=== PATIENT | female | born 1955 | race American Indian/Alaskan Native ===

== ENCOUNTER 2016-12-28 15:18 | Emergency (ER) | payer MEDICARE ==
--- NOTE | 2016-12-28 15:59 | Emergency Department Report ---
Entered by RADHA VENEGAS, acting as scribe for SAW DESOUZA NP. Chief Complaint: Fall Stated Complaint: MIGRAINE/CHEST/BACK PAIN Time Seen by Provider: 12/28/16 15:49 - HPI History of Present Illness: 61 y/o female presents after a fall that resulted in left sided chest pain occurring earlier this morning. Associated Sx include 10/10, pressure-like PARKS, dizziness, left sided abd pain and back pain. Pt denies LOC or trauma to the head during the fall. - ROS Review of Systems: +PARKS +dizziness +left side abd pain +back pain -LOC - Exam Vital Signs: Vital Signs 12/28/16 15:49 Temperature 98.4 F Pulse Rate 79 Respiratory 17 Rate Blood Pressure 150/73 O2 Sat by Pulse 100 Oximetry Physical Exam: PT looks well, non toxic L cw ttp no acute resp distress MSE screening note: Focused history and physical exam performed. Due to findings the following was ordered: labs, xr ED Disposition for MSE Condition: Stable This documentation as recorded by the scribe,RADHA VENEGAS,accurately reflects the service I personally performed and the decisions made by LYLY foy TRACY M, NP.
[2016-12-29 00:25] VITALS: BP 141/90
--- NOTE | 2016-12-29 03:45 | Emergency Department Report ---
ED Fall HPI - General Chief Complaint: Fall Stated Complaint: MIGRAINE/CHEST/BACK PAIN Time Seen by Provider: 12/28/16 15:49 Source: patient Mode of arrival: Ambulatory - History of Present Illness Initial Comments: And is a 61-year-old woman with a history of hypertension end-stage renal disease on dialysis presenting to the ER status post muscle aches. Patient reports she recently was on a cruise to the [facility] for the last 2 days and slept while she was on the cruciate and then had another fall today while she was at home. She reports she is not having frequent falls she just happened to fall twice in the last few days. Otherwise no other complaints no head trauma no loss of consciousness. - Related Data Home Medications Medication Instructions Recorded Confirmed Last Taken HYDROcodone/APAP 10-325 [[place] 1 each PO Q6HR PRN 10/23/16 10/23/16 Unknown 10-325 mg TAB] cloNIDine [Catapres] 0.2 mg PO BID 10/23/16 10/23/16 10/22/16 Previous Rx's Medication Instructions Recorded Last Taken Type Lisinopril [Zestril TAB] 10 mg PO DAILY #30 tablet 05/23/14 10/22/16 Rx amLODIPine [Norvasc] 10 mg PO QDAY #30 tablet 05/23/14 10/22/16 Rx hydrALAZINE [Apresoline TAB] 100 mg PO TID #90 tab 05/23/14 10/22/16 Rx HYDROcodone/APAP 5-325 [[place] 1 each PO Q6HR PRN #6 tablet 12/29/16 Unknown Rx 5/325] Allergies Allergy/AdvReac Type Severity Reaction Status Date / Time latex AdvReac Hives Verified 12/28/16 15:59 tramadol AdvReac Hives Verified 12/28/16 15:59 ED Review of Systems ROS: Stated complaint: MIGRAINE/CHEST/BACK PAIN Other details as noted in HPI Comment: All other systems reviewed and negative ED Past Medical Hx - Past Medical History Hx Hypertension: Yes Hx Congestive Heart Failure: Yes Hx Diabetes: Yes Hx Renal Disease: Yes (DIALYSIS E / SAT) Hx Asthma: No Hx COPD: No Hx HIV: No Additional medical history: dialysis ,,tue - Surgical History Additional Surgical History: fistula L arm. partial hysterectomy. POWER PORT RIGHT CHEST - Social History Smoking Status: Former Smoker Substance Use Type: None - Medications Home Medications: Home Medications Medication Instructions Recorded Confirmed Last Taken Type Lisinopril [Zestril TAB] 10 mg PO DAILY #30 tablet 05/23/14 10/23/16 10/22/16 Rx amLODIPine [Norvasc] 10 mg PO QDAY #30 tablet 05/23/14 10/23/16 10/22/16 Rx hydrALAZINE [Apresoline TAB] 100 mg PO TID #90 tab 05/23/14 10/23/16 10/22/16 Rx HYDROcodone/APAP 10-325 [[place] 1 each PO Q6HR PRN 10/23/16 10/23/16 Unknown History 10-325 mg TAB] cloNIDine [Catapres] 0.2 mg PO BID 10/23/16 10/23/16 10/22/16 History HYDROcodone/APAP 5-325 [[place] 1 each PO Q6HR PRN #6 tablet 12/29/16 Unknown Rx 5/325] ED Physical Exam - General Limitations: No Limitations General appearance: alert, in no apparent distress - Head Head exam: Present: atraumatic, normocephalic - Eye Eye exam: Present: normal appearance - ENT ENT exam: Present: mucous membranes moist - Neck Neck exam: Present: normal inspection - Respiratory Respiratory exam: Present: normal lung sounds bilaterally. Absent: respiratory distress - Cardiovascular Cardiovascular Exam: Present: regular rate, normal rhythm. Absent: systolic murmur, diastolic murmur, rubs, gallop - GI/Abdominal GI/Abdominal exam: Present: soft, normal bowel sounds - Extremities Exam Extremities exam: Present: normal inspection - Back Exam Back exam: Present: normal inspection, full ROM. Absent: tenderness, paraspinal tenderness, vertebral tenderness - Neurological Exam Neurological exam: Present: alert, oriented X3, CN II-XII intact, normal gait. Absent: motor sensory deficit - Psychiatric Psychiatric exam: Present: normal affect, normal mood - Skin Skin exam: Present: warm, dry, intact, normal color. Absent: rash, erythema, abrasion, ecchymosis ED Course Vital Signs 12/28/16 12/29/16 15:49 00:20 Temperature 98.4 F 98.0 F Pulse Rate 79 80 Respiratory 17 14 Rate Blood Pressure 150/73 141/90 O2 Sat by Pulse 100 100 Oximetry Critical care attestation.: If time is entered above; I have spent that time in minutes in the direct care of this critically ill patient, excluding procedure time. ED Disposition Clinical Impression: Fall, Arthralgia Disposition: DISCHARGED TO HOME OR SELFCARE Is pt being admited?: No Condition: Stable Instructions: Fall Prevention (ED), Musculoskeletal Pain (ED) Prescriptions: HYDROcodone/APAP 5-325 [[place] 5/325] 1 each PO Q6HR PRN #6 tablet PRN Reason: Pain Referrals: PRIMARY CARE, [Primary Care Provider] - 3-5 Days
[2016-12-29] MEDS ORDERED: NORCO 5/325 ONE (04:02)
[2016-12-29] MEDS: NORCO 5/325 PO ONE (04:13)
--- NOTE | 2016-12-29 08:43 | XRay Report ---
Left rib series with PA chest, 4 views. History: Left rib pain after fall. Findings: The heart is enlarged with normal pulmonary vascularity. The lungs are clear. No rib fractures are identified. There is no pleural fluid. A vascular stent is again noted above the level of the aorta. A right central line is unchanged in position. Impression: No acute findings.
== END 2016-12-29 04:14 | disposition home or self-care (01) ==
LOC: ED 15:18
DX: M79.1 Myalgia (principal); E11.9 Type 2 diabetes mellitus without complications; I12.0 Hypertensive chronic kidney disease with stage 5 chronic kidney disease or end stage renal disease; N18.6 End stage renal disease; W19.XXXA Unspecified fall, initial encounter; Y93.9 Activity, unspecified; Y92.9 Unspecified place or not applicable; Y99.9 Unspecified external cause status
CPT/HCPCS: 99283

== ENCOUNTER 2017-06-16 14:59 | Emergency (ER) | payer MEDICARE ==
[2017-06-16 15:42] VITALS: BP 134/71
--- NOTE | 2017-06-16 16:52 | Cat Scan Report ---
CT pelvis without contrast: Back pain. Transverse images were obtained dilute just to the ischium with coronal and sagittal 2-D reformatted images. Comparison is made to prior study of October 2016. There is bibasilar focal areas of atelectasis in the visualized lung bases. Not present on prior study. Cardiovascular calcification present. Cholecystectomy clips present. Lobulated liver and prominent size spleen. Moderate volume of food stuffs in the stomach. Bilaterally hypertrophic kidneys. Normal abdominal aortic contour and size. No obvious adenopathy although evaluation limited due to the lack of IV contrast. No renal calculus and no obstructive uropathy. Moderate volume of fecal matter predominantly in the proximal colon. Unopacified bowel otherwise unremarkable. Appendix questionably identified with no inflammatory change. Reproductive organs removed. The bones are diffusely demineralized. There is diffuse spondylosis of the lower thoracic bodies. There is a scalloped compression of the inferior margin of T11 with anterior compression of the superior body of T12. The compression changes are new compared to prior study. Impression: 1. Interval compression of lower thoracic spine. 2. Hepatic cirrhosis and suspicion of portal hypertension. 3. Suspect renal insufficiency with hypertrophic kidneys. 4. Question gastric atony. 5. Bibasilar atelectasis.
[2017-06-17] MEDS ORDERED: MORPHINE ONE ×2 (10:31→11:14)
== END 2017-06-16 19:58 | disposition left against medical advice (07) ==
LOC: ED 14:59
DX: M54.5 Low back pain (principal); Z53.21 Procedure and treatment not carried out due to patient leaving prior to being seen by health care provider
CPT/HCPCS: 74176; J2270

== ENCOUNTER 2017-06-16 21:35 | Inpatient (IN) | payer MEDICARE ==
[2017-06-16 23:57] LABS: Calcium 9.3 mg/dL (8.4-10.2); Chloride 92.8 mmol/L (98-107); Potassium 4.7 mmol/L (3.6-5.0)
[2017-06-17 00:24] LABS: White Blood Count 6.2 K/mm3 (4.5-11.0)
[2017-06-17 00:25] LABS: Hemoglobin 10.3 gm/dl (10.1-14.3); Mean Corpuscular HGB Conc 30 % (30-34); Mean Corpuscular Hemoglobin 24 pg (28-32); Mean Corpuscular Volume 79 fl (79-97); Red Blood Count 4.31 M/mm3 (3.65-5.03)
[2017-06-17 00:26] LABS: Platelet Count 112 K/mm3 (140-440); Red Cell Distribution Width 20.5 % (13.2-15.2)
[2017-06-17 01:19] LABS: Erythrocyte Sedimentation Rate 57 mm/Hr (0-20)
[2017-06-17 01:51] LABS: Anisocytosis 1+; Basophils % (Manual) 0 % (0.0-1.8); Blastocytes % (Manual) 0 %; Hypochromasia 1+; Macrocytosis 1+
[2017-06-17 01:52] LABS: Giant Platelets Rare; Tear Drop Cells Few
[2017-06-17 01:53] LABS: Diff Status Complete; Platelet Estimate Consistent w Auto
[2017-06-17] MEDS ORDERED: MORPHINE IM ONE ×2 (06:06→12:00)
--- NOTE | 2017-06-17 06:11 | Emergency Department Report ---
ED Back Pain/Injury HPI - General Chief Complaint: Back Pain/Injury Stated Complaint: LOWER BACK PAIN, LEFT SIDE PAIN Time Seen by Provider: 06/17/17 05:57 Source: patient Limitations: No Limitations - History of Present Illness Initial Comments: 62-year-old female with a known history of discitis in her back here with complaints of back pain. Patient states she's had worsening back pain for approximately 2 days. She was recently treated for discitis at T11 and T12 per [place] records and states she finished antibiotics approximately one month ago. She states the back pain started worse for the last 2 days. She denies fevers chills nausea vomiting. She denies any neurological complaints including bowel and bladder incontinence. She's been able to ambulate with some pain. MD Complaint: back pain -: Gradual, days(s) (2) Similar Symptoms Previously: Yes Place: home Radiation: none Severity: severe Quality: aching Improves With: immobilization Worsens With: movement, other Associated Symptoms: denies: confusion, weakness, chest pain, numbness, difficulty walking, incontinence, fever/chills - Related Data Home Medications Medication Instructions Recorded Confirmed Last Taken HYDROcodone/APAP 10-325 [[place] 1 each PO Q6HR PRN 10/23/16 10/23/16 Unknown 10-325 mg TAB] cloNIDine [Catapres] 0.2 mg PO BID 10/23/16 10/23/16 10/22/16 Previous Rx's Medication Instructions Recorded Last Taken Type Lisinopril [Zestril TAB] 10 mg PO DAILY #30 tablet 05/23/14 10/22/16 Rx amLODIPine [Norvasc] 10 mg PO QDAY #30 tablet 05/23/14 10/22/16 Rx hydrALAZINE [Apresoline TAB] 100 mg PO TID #90 tab 05/23/14 10/22/16 Rx HYDROcodone/APAP 5-325 [[place] 1 each PO Q6HR PRN #6 tablet 12/29/16 Unknown Rx 5/325] Allergies Allergy/AdvReac Type Severity Reaction Status Date / Time latex AdvReac Hives Verified 06/16/17 15:42 tramadol AdvReac Hives Verified 06/16/17 15:42 ED Review of Systems ROS: Stated complaint: LOWER BACK PAIN, LEFT SIDE PAIN Other details as noted in HPI Comment: All other systems reviewed and negative Constitutional: denies: chills, fever Eyes: denies: eye pain, eye discharge, vision change ENT: denies: ear pain, throat pain Respiratory: denies: cough, shortness of breath, wheezing Cardiovascular: denies: chest pain, palpitations Endocrine: no symptoms reported Gastrointestinal: denies: abdominal pain, nausea, diarrhea Genitourinary: denies: urgency, dysuria, discharge Musculoskeletal: denies: back pain, joint swelling, arthralgia Skin: denies: rash, lesions Neurological: denies: headache, weakness, paresthesias Psychiatric: denies: anxiety, depression Hematological/Lymphatic: denies: easy bleeding, easy bruising ED Past Medical Hx - Past Medical History Hx Hypertension: Yes Hx Congestive Heart Failure: Yes Hx Diabetes: Yes Hx Renal Disease: Yes (DIALYSIS TUE /Tue) Hx Asthma: No Hx COPD: No Hx HIV: No Additional medical history: dialysis ,,tue - Surgical History Additional Surgical History: fistula L arm. partial hysterectomy. POWER PORT RIGHT CHEST - Family History Family history: no significant - Social History Smoking Status: Current Every Day Smoker Substance Use Type: None - Medications Home Medications: Home Medications Medication Instructions Recorded Confirmed Last Taken Type Lisinopril [Zestril TAB] 10 mg PO DAILY #30 tablet 05/23/14 10/23/16 10/22/16 Rx amLODIPine [Norvasc] 10 mg PO QDAY #30 tablet 05/23/14 10/23/16 10/22/16 Rx hydrALAZINE [Apresoline TAB] 100 mg PO TID #90 tab 05/23/14 10/23/16 10/22/16 Rx HYDROcodone/APAP 10-325 [[place] 1 each PO Q6HR PRN 10/23/16 10/23/16 Unknown History 10-325 mg TAB] cloNIDine [Catapres] 0.2 mg PO BID 10/23/16 10/23/16 10/22/16 History HYDROcodone/APAP 5-325 [[place] 1 each PO Q6HR PRN #6 tablet 12/29/16 Unknown Rx 5/325] ED Physical Exam - General Limitations: No Limitations General appearance: alert, in no apparent distress - Head Head exam: Present: atraumatic, normocephalic - Eye Eye exam: Present: normal appearance - ENT ENT exam: Present: mucous membranes moist - Neck Neck exam: Present: normal inspection - Respiratory Respiratory exam: Present: normal lung sounds bilaterally. Absent: respiratory distress, wheezes, rales, rhonchi - Cardiovascular Cardiovascular Exam: Present: regular rate, normal rhythm. Absent: systolic murmur, diastolic murmur, rubs, gallop - GI/Abdominal GI/Abdominal exam: Present: soft, normal bowel sounds. Absent: distended, tenderness - Extremities Exam Extremities exam: Present: normal inspection - Back Exam Back exam: Present: normal inspection - Neurological Exam Neurological exam: Present: alert, oriented X3 - Psychiatric Psychiatric exam: Present: normal affect, normal mood - Skin Skin exam: Present: warm, dry, intact, normal color. Absent: rash ED Course Vital Signs 06/16/17 06/17/17 06/17/17 21:55 02:58 06:00 Temperature 98.7 F 97.4 F L 98.1 F Pulse Rate 102 H 99 H 106 H Respiratory 18 20 16 Rate Blood Pressure 138/84 Blood Pressure 135/76 150/83 [Left] O2 Sat by Pulse 100 96 100 Oximetry ED Medical Decision Making - Lab Data Result diagrams: 06/16/17 23:19 06/16/17 23:19 Laboratory Results - last 24 hr 06/16/17 06/16/17 23:19 23:19 WBC 6.2 RBC 4.31 Hgb 10.3 Hct 34.0 MCV 79 MCH 24 L MCHC 30 RDW 20.5 H Plt Count 112 L Lymph % (Auto) Canal Structure Operator Ware % (Auto) Canal Structure Operator Eos % (Auto) Canal Structure Operator Baso % (Auto) Canal Structure Operator Lymph # Canal Structure Operator Ware # Canal Structure Operator Eos # Canal Structure Operator Baso # Canal Structure Operator Add Manual Diff Complete Total Counted 100 Seg Neutrophils % Canal Structure Operator Seg Neuts % (Manual) 64.0 Band Neutrophils % 1.0 Lymphocytes % (Manual) 19.0 Reactive Lymphs % (Man) 0 Monocytes % (Manual) 9.0 H Eosinophils % (Manual) 7.0 H Basophils % (Manual) 0 Metamyelocytes % 0 Myelocytes % 0 Promyelocytes % 0 Blast Cells % 0 Nucleated RBC % Not Reportable Seg Neutrophils # Canal Structure Operator Seg Neutrophils # Man 4.0 Band Neutrophils # 0.1 Lymphocytes # (Manual) 1.2 Abs React Lymphs (Man) 0.0 Monocytes # (Manual) 0.6 Eosinophils # (Manual) 0.4 Basophils # (Manual) 0.0 Metamyelocytes # 0.0 Myelocytes # 0.0 Promyelocytes # 0.0 Blast Cells # 0.0 WBC Morphology Not Reportable Hypersegmented Neuts Not Reportable Hyposegmented Neuts Not Reportable Hypogranular Neuts Not Reportable Smudge Cells Not Reportable Toxic Granulation Not Reportable Toxic Vacuolation Not Reportable Dohle Bodies Not Reportable Pelger-Huet Anomaly Not Reportable Chaitanya Rods Not Reportable Platelet Estimate Consistent w auto Clumped Platelets Not Reportable Plt Clumps, EDTA Not Reportable Large Platelets Not Reportable Giant Platelets Rare Platelet Satelliting Not Reportable Plt Morphology Comment Not Reportable RBC Morphology Not Reportable Dimorphic RBCs Not Reportable Polychromasia Not Reportable Hypochromasia 1+ Poikilocytosis Not Reportable Anisocytosis 1+ Microcytosis Not Reportable Macrocytosis 1+ Spherocytes Not Reportable Pappenheimer Bodies Not Reportable Sickle Cells Not Reportable Target Cells Not Reportable Tear Drop Cells Few Ovalocytes Not Reportable Helmet Cells Not Reportable Peña-[place] Bodies Not Reportable Pelion Rings Not Reportable Forks Cells Not Reportable Bite Cells Not Reportable Crenated Cell Not Reportable Elliptocytes Not Reportable Acanthocytes (Spur) Not Reportable Rouleaux Not Reportable Hemoglobin C Crystals Not Reportable Schistocytes Not Reportable Malaria parasites Not Reportable ESR 57 Maxime Bodies Not Reportable Hem Pathologist Commnt No Sodium 138 Potassium 4.7 Chloride 92.8 L Carbon Dioxide 24 Anion Gap 26 BUN 28 H Creatinine 5.1 H Estimated GFR 10 BUN/Creatinine Ratio 5 Glucose 141 H Calcium 9.3 - Medical Decision Making 62-year-old female with recent discitis here with complaint of back pain. She is afebrile and has no elevation in white blood cell count however she is point tender around her T11 and L1 region she denies fevers chills at home. I reviewed her MRI results from memory that do show a discitis process. This MRI was completed on June 06. Given and patient states that she likely finished antibiotic several probably need to admit her for continued or renewed IV antibiotics and pain control. Discussed with hospitalist [employer] solid waste collection worker and plan to admit the patient to their service. Portions of this chart were dictated with dictation software. There may be dictation errors contained within this note. Critical care attestation.: If time is entered above; I have spent that time in minutes in the direct care of this critically ill patient, excluding procedure time. ED Disposition Clinical Impression: Back pain, Impaired ambulation Disposition: OP ADMIT IP TO THIS HOSP Is pt being admited?: No Condition: Stable Referrals: PRIMARY CARE, [Primary Care Provider] - 3-5 Days
--- NOTE | 2017-06-17 09:02 | History and Physical Report ---
<TJ DICKEY - Last Filed: 06/17/17 12:46> History of Present Illness Date of examination: 06/17/17 Date of admission: 06/17/2017 Chief complaint: back pain History of present illness: Patient is a 62 years old black -[place] female with past medical history of end stage renal disease on TTS, hypertension, chronic anemia and discitis in her back. Patient has been having lower back pain for the past 2 weeks and gradually worsening over the past 2 days. Now she has had progressive worsening of her back pain to where she cannot walk, sitting up, changing position without having pain; she has never had anything like this before. She was recently treated for discitis at T11 and T12 in [place] and was discharged with IV antibiotic with hemodialysis and pain medication. Patient reported that she completed a course of antibiotics approximately one month ago. She denies fever, chills, chest pain, palpitation, nausea, vomiting, loss of bowel or bladder continence. Patient is in extreme distress due to pain also a poor historian therefor history is very limited. Past History Past Medical History: anemia, ESRD (hemodialysis), hypertension, other ( discitis) Past Surgical History: Other (A hemodialysis acess) Social history: denies: smoking, alcohol abuse Family history: CAD, hypertension Medications and Allergies Allergies Allergy/AdvReac Type Severity Reaction Status Date / Time latex AdvReac Hives Verified 06/16/17 15:42 tramadol AdvReac Hives Verified 06/16/17 15:42 Home Medications Medication Instructions Recorded Confirmed Last Taken Type cloNIDine [Catapres] 0.2 mg PO BID 10/23/16 06/17/17 10/22/16 History Cyclobenzaprine [Flexeril] 10 mg PO Q12H 06/17/17 06/17/17 Unknown History [place] 5-325 mg TAB 1 each PO Q12H 06/17/17 06/17/17 Unknown History Active Meds: Active Medications Acetaminophen (Tylenol) 650 mg PO Q4H PRN PRN Reason: Pain MILD(1-3)/Fever >100.5/[place]KS Amlodipine Besylate (Norvasc) 10 mg PO QDAY [facility] Bisacodyl (Dulcolax) 10 mg [place] QDAY PRN PRN Reason: Constipation unrelieved by MOM Clonidine HCl (Catapres) 0.2 mg PO BID [facility] Enoxaparin Sodium (Lovenox) 40 mg SUB-Q QDAY [facility] Hydralazine HCl (Apresoline) 100 mg PO TID [facility] Lisinopril (Zestril) 10 mg PO DAILY [facility] Morphine Sulfate (Morphine) 2 mg IV Q4H PRN PRN Reason: Pain, Moderate (4-6) Review of Systems Constitutional: no weight gain, no fever, no chills, no sweats Ears, nose, mouth and throat: no tinnitis, no decreased hearing, no nose pain, no nasal congestion, no nasal discharge Cardiovascular: no chest pain, no orthopnea, no palpitations, no rapid/ irregular heart beat Respiratory: no cough, no cough with sputum, no excessive sputum, no hemoptysis , no shortness of breath Gastrointestinal: no vomiting, no diarrhea, no constipation Genitourinary Female: no urgency, no stress incontinence, no post void dribbling Menstruation: no premenarcheal, no post hysterectomy, no ammenorrhea Musculoskeletal: no neck stiffness, no neck pain, no shooting arm pain, no low back pain, no shooting leg pain Integumentary: no redness, no sores, no boils Neurological: no numbness, no tingling, no seizures Psychiatric: no sleep disturbances, no insomnia, no hypersomnia, no change in libido, no suicidal ideation Endocrine: no cold intolerance, no heat intolerance, no polyphagia, no excessive thirst, no polydipsia Hematologic/Lymphatic: no easy bruising, no easy bleeding Allergic/Immunologic: no urticaria, no allergic rhinitis Exam - Constitutional Vitals: Temp Pulse Resp BP Pulse Ox 98.6 F 99 H 20 136/83 100 06/17/17 07:10 06/17/17 07:10 06/17/17 07:10 06/17/17 07:10 06/17/17 07:10 General appearance: Present: no acute distress - EENT Eyes: Present: PERRL ENT: hearing intact - Neck Neck: Present: supple - Respiratory Respiratory effort: normal Respiratory: bilateral: CTA - Extremities Extremity abnormal: other - Abdominal General gastrointestinal: Present: soft, non-tender Female genitourinary: Present: deferred - Rectal Rectal Exam: deferred - Integumentary Integumentary: Present: clear, warm, dry - Musculoskeletal Musculoskeletal: strength equal bilaterally - Psychiatric Psychiatric: appropriate mood/affect - Neurologic Neurologic: other (moves lower extermities with pain) Results - Labs CBC & Chem 7: 06/16/17 23:19 06/16/17 23:19 Labs: Laboratory Last Values WBC 6.2 K/mm3 (4.5-11.0) 06/16/17 23:19 RBC 4.31 M/mm3 (3.65-5.03) 06/16/17 23:19 Hgb 10.3 gm/dl (10.1-14.3) 06/16/17 23:19 Hct 34.0 % (30.3-42.9) 06/16/17 23:19 MCV 79 fl (79-97) 06/16/17 23:19 MCH 24 pg (28-32) L 06/16/17 23:19 MCHC 30 % (30-34) 06/16/17 23:19 RDW 20.5 % (13.2-15.2) H 06/16/17 23:19 Plt Count 112 K/mm3 (140-440) L 06/16/17 23:19 Lymph % (Auto) [employer] 06/16/17 23:19 Colbert % (Auto) [employer] 06/16/17 23:19 Eos % (Auto) [employer] 06/16/17 23:19 Baso % (Auto) [employer] 06/16/17 23:19 Lymph # [employer] 06/16/17 23:19 Colbert # [employer] 06/16/17 23:19 Eos # [employer] 06/16/17 23:19 Baso # [employer] 06/16/17 23:19 Add Manual Diff Complete 06/16/17 23:19 Total Counted 100 06/16/17 23:19 Seg Neutrophils % [employer] 06/16/17 23:19 Seg Neuts % (Manual) 64.0 % (40.0-70.0) 06/16/17 23:19 Band Neutrophils % 1.0 % 06/16/17 23:19 Lymphocytes % (Manual) 19.0 % (13.4-35.0) 06/16/17 23:19 Reactive Lymphs % (Man) 0 % 06/16/17 23:19 Monocytes % (Manual) 9.0 % (0.0-7.3) H 06/16/17 23:19 Eosinophils % (Manual) 7.0 % (0.0-4.3) H 06/16/17 23:19 Basophils % (Manual) 0 % (0.0-1.8) 06/16/17 23:19 Metamyelocytes % 0 % 06/16/17 23:19 Myelocytes % 0 % 06/16/17 23:19 Promyelocytes % 0 % 06/16/17 23:19 Blast Cells % 0 % 06/16/17 23:19 Nucleated RBC % Not Reportable 06/16/17 23:19 Seg Neutrophils # [employer] 06/16/17 23:19 Seg Neutrophils # Man 4.0 K/mm3 (1.8-7.7) 06/16/17 23:19 Band Neutrophils # 0.1 K/mm3 06/16/17 23:19 Lymphocytes # (Manual) 1.2 K/mm3 (1.2-5.4) 06/16/17 23:19 Abs React Lymphs (Man) 0.0 K/mm3 06/16/17 23:19 Monocytes # (Manual) 0.6 K/mm3 (0.0-0.8) 06/16/17 23:19 Eosinophils # (Manual) 0.4 K/mm3 (0.0-0.4) 06/16/17 23:19 Basophils # (Manual) 0.0 K/mm3 (0.0-0.1) 06/16/17 23:19 Metamyelocytes # 0.0 K/mm3 06/16/17 23:19 Myelocytes # 0.0 K/mm3 06/16/17 23:19 Promyelocytes # 0.0 K/mm3 06/16/17 23:19 Blast Cells # 0.0 K/mm3 06/16/17 23:19 WBC Morphology Not Reportable 06/16/17 23:19 Hypersegmented Neuts Not Reportable 06/16/17 23:19 Hyposegmented Neuts Not Reportable 06/16/17 23:19 Hypogranular Neuts Not Reportable 06/16/17 23:19 Smudge Cells Not Reportable 06/16/17 23:19 Toxic Granulation Not Reportable 06/16/17 23:19 Toxic Vacuolation Not Reportable 06/16/17 23:19 Dohle Bodies Not Reportable 06/16/17 23:19 Pelger-Huet Anomaly Not Reportable 06/16/17 23:19 Chaitanya Rods Not Reportable 06/16/17 23:19 Platelet Estimate Consistent w auto 06/16/17 23:19 Clumped Platelets Not Reportable 06/16/17 23:19 Plt Clumps, EDTA Not Reportable 06/16/17 23:19 Large Platelets Not Reportable 06/16/17 23:19 Giant Platelets Rare 06/16/17 23:19 Platelet Satelliting Not Reportable 06/16/17 23:19 Plt Morphology Comment Not Reportable 06/16/17 23:19 RBC Morphology Not Reportable 06/16/17 23:19 Dimorphic RBCs Not Reportable 06/16/17 23:19 Polychromasia Not Reportable 06/16/17 23:19 Hypochromasia 1+ 06/16/17 23:19 Poikilocytosis Not Reportable 06/16/17 23:19 Anisocytosis 1+ 06/16/17 23:19 Microcytosis Not Reportable 06/16/17 23:19 Macrocytosis 1+ 06/16/17 23:19 Spherocytes Not Reportable 06/16/17 23:19 Pappenheimer Bodies Not Reportable 06/16/17 23:19 Sickle Cells Not Reportable 06/16/17 23:19 Target Cells Not Reportable 06/16/17 23:19 Tear Drop Cells Few 06/16/17 23:19 Ovalocytes Not Reportable 06/16/17 23:19 Helmet Cells Not Reportable 06/16/17 23:19 Peña-Gustavus Bodies Not Reportable 06/16/17 23:19 [place] Rings Not Reportable 06/16/17 23:19 Zack Cells Not Reportable 06/16/17 23:19 Bite Cells Not Reportable 06/16/17 23:19 Crenated Cell Not Reportable 06/16/17 23:19 Elliptocytes Not Reportable 06/16/17 23:19 Acanthocytes (Spur) Not Reportable 06/16/17 23:19 Rouleaux Not Reportable 06/16/17 23:19 Hemoglobin C Crystals Not Reportable 06/16/17 23:19 Schistocytes Not Reportable 06/16/17 23:19 Malaria parasites Not Reportable 06/16/17 23:19 ESR 57 mm/Hr (0-20) 06/16/17 23:19 Maxime Bodies Not Reportable 06/16/17 23:19 Hem Pathologist Commnt No 06/16/17 23:19 Sodium 138 mmol/L (137-145) 06/16/17 23:19 Potassium 4.7 mmol/L (3.6-5.0) 06/16/17 23:19 Chloride 92.8 mmol/L (98-107) L 06/16/17 23:19 Carbon Dioxide 24 mmol/L (22-30) 06/16/17 23:19 Anion Gap 26 mmol/L 06/16/17 23:19 BUN 28 mg/dL (7-17) H 06/16/17 23:19 Creatinine 5.1 mg/dL (0.7-1.2) H 06/16/17 23:19 Estimated GFR 10 ml/min 06/16/17 23:19 BUN/Creatinine Ratio 5 % 06/16/17 23:19 Glucose 141 mg/dL (65-100) H 06/16/17 23:19 POC Glucose 96 (70-105) 06/17/17 07:32 Calcium 9.3 mg/dL (8.4-10.2) 06/16/17 23:19 C-Reactive Protein 2.00 mg/dL (0.00-1.30) H 06/17/17 06:50 Assessment and Plan Assessment and plan: Patient is a 62 years old black -[place] female with past medical history of end stage renal disease, hypertension, chronic anemia and discitis in her back. Patient has been having lower back pain for the past 2 weeks and gradually worsening over the past 2 days. Now she has had progressive worsening of her back pain to where she cannot walk, sitting up, changing position without having pain. ASSESSMENT/PLAN Intractable back pain Controlled with morphine Supportive care History of spinal infection Erythrocyte sedimentation rate MRI ordered Possible ID consult based on old medical records Supportive care T11 Compression fracture Orthopedic consulted End-stage renal disease Nephrology consulted Thrombocytopenia Most likely due to radiographic cirrhosis Closely monitor LFT Hypertension Resume antihypertensive medication Closely monitor blood pressure Questionable Diabetes mellitus We will obtain AC1 DVT prophylaxis SCD due to thrombocytopenia Advance Directives: Yes VTE prophylaxis?: Chemical Contraindication Mechanical VTE Prophylaxis: Treatment Not Indicated Plan of care discussed with patient/family: Yes <CLAIRE DUFF - Last Filed: 06/17/17 12:49> History of Present Illness Date of admission: 06/17/17 08:56 Medications and Allergies Active Meds: Active Medications Acetaminophen (Tylenol) 650 mg PO Q4H PRN PRN Reason: Pain MILD(1-3)/Fever >100.5/[place] Amlodipine Besylate (Norvasc) 10 mg PO QDAY [facility] Last Admin: 06/17/17 11:29 Dose: 10 mg Bisacodyl (Dulcolax) 10 mg [place] QDAY PRN PRN Reason: Constipation unrelieved by MOM Clonidine HCl (Catapres) 0.2 mg PO BID [facility] Last Admin: 06/17/17 11:28 Dose: Not Given Enoxaparin Sodium (Lovenox) 30 mg SUB-Q QDAY [facility] Last Admin: 06/17/17 11:29 Dose: 30 mg Hydralazine HCl (Apresoline) 100 mg PO TID [facility] Lisinopril (Zestril) 10 mg PO DAILY [facility] Last Admin: 06/17/17 11:29 Dose: 10 mg Morphine Sulfate (Morphine) 2 mg IV Q4H PRN PRN Reason: Pain, Moderate (4-6) Exam - Constitutional Vitals: Temp Pulse Resp BP Pulse Ox 98.6 F 88 20 128/77 100 06/17/17 07:10 06/17/17 11:29 06/17/17 12:01 06/17/17 11:29 06/17/17 07:10 Results - Labs CBC & Chem 7: 06/16/17 23:19 06/16/17 23:19 Labs: Laboratory Last Values WBC 6.2 K/mm3 (4.5-11.0) 06/16/17 23:19 RBC 4.31 M/mm3 (3.65-5.03) 06/16/17 23:19 Hgb 10.3 gm/dl (10.1-14.3) 06/16/17 23:19 Hct 34.0 % (30.3-42.9) 06/16/17 23:19 MCV 79 fl (79-97) 06/16/17 23:19 MCH 24 pg (28-32) L 06/16/17 23:19 MCHC 30 % (30-34) 06/16/17 23:19 RDW 20.5 % (13.2-15.2) H 06/16/17 23:19 Plt Count 112 K/mm3 (140-440) L 06/16/17 23:19 Lymph % (Auto) [employer] 06/16/17 23:19 Colbert % (Auto) [employer] 06/16/17 23:19 Eos % (Auto) [employer] 06/16/17 23:19 Baso % (Auto) [employer] 06/16/17 23:19 Lymph # [employer] 06/16/17 23:19 Colbert # [employer] 06/16/17 23:19 Eos # [employer] 06/16/17 23:19 Baso # [employer] 06/16/17 23:19 Add Manual Diff Complete 06/16/17 23:19 Total Counted 100 06/16/17 23:19 Seg Neutrophils % [employer] 06/16/17 23:19 Seg Neuts % (Manual) 64.0 % (40.0-70.0) 06/16/17 23:19 Band Neutrophils % 1.0 % 06/16/17 23:19 Lymphocytes % (Manual) 19.0 % (13.4-35.0) 06/16/17 23:19 Reactive Lymphs % (Man) 0 % 06/16/17 23:19 Monocytes % (Manual) 9.0 % (0.0-7.3) H 06/16/17 23:19 Eosinophils % (Manual) 7.0 % (0.0-4.3) H 06/16/17 23:19 Basophils % (Manual) 0 % (0.0-1.8) 06/16/17 23:19 Metamyelocytes % 0 % 06/16/17 23:19 Myelocytes % 0 % 06/16/17 23:19 Promyelocytes % 0 % 06/16/17 23:19 Blast Cells % 0 % 06/16/17 23:19 Nucleated RBC % Not Reportable 06/16/17 23:19 Seg Neutrophils # [employer] 06/16/17 23:19 Seg Neutrophils # Man 4.0 K/mm3 (1.8-7.7) 06/16/17 23:19 Band Neutrophils # 0.1 K/mm3 06/16/17 23:19 Lymphocytes # (Manual) 1.2 K/mm3 (1.2-5.4) 06/16/17 23:19 Abs React Lymphs (Man) 0.0 K/mm3 06/16/17 23:19 Monocytes # (Manual) 0.6 K/mm3 (0.0-0.8) 06/16/17 23:19 Eosinophils # (Manual) 0.4 K/mm3 (0.0-0.4) 06/16/17 23:19 Basophils # (Manual) 0.0 K/mm3 (0.0-0.1) 06/16/17 23:19 Metamyelocytes # 0.0 K/mm3 06/16/17 23:19 Myelocytes # 0.0 K/mm3 06/16/17 23:19 Promyelocytes # 0.0 K/mm3 06/16/17 23:19 Blast Cells # 0.0 K/mm3 06/16/17 23:19 WBC Morphology Not Reportable 06/16/17 23:19 Hypersegmented Neuts Not Reportable 06/16/17 23:19 Hyposegmented Neuts Not Reportable 06/16/17 23:19 Hypogranular Neuts Not Reportable 06/16/17 23:19 Smudge Cells Not Reportable 06/16/17 23:19 Toxic Granulation Not Reportable 06/16/17 23:19 Toxic Vacuolation Not Reportable 06/16/17 23:19 Dohle Bodies Not Reportable 06/16/17 23:19 Pelger-Huet Anomaly Not Reportable 06/16/17 23:19 Chaitanya Rods Not Reportable 06/16/17 23:19 Platelet Estimate Consistent w auto 06/16/17 23:19 Clumped Platelets Not Reportable 06/16/17 23:19 Plt Clumps, EDTA Not Reportable 06/16/17 23:19 Large Platelets Not Reportable 06/16/17 23:19 Giant Platelets Rare 06/16/17 23:19 Platelet Satelliting Not Reportable 06/16/17 23:19 Plt Morphology Comment Not Reportable 06/16/17 23:19 RBC Morphology Not Reportable 06/16/17 23:19 Dimorphic RBCs Not Reportable 06/16/17 23:19 Polychromasia Not Reportable 06/16/17 23:19 Hypochromasia 1+ 06/16/17 23:19 Poikilocytosis Not Reportable 06/16/17 23:19 Anisocytosis 1+ 06/16/17 23:19 Microcytosis Not Reportable 06/16/17 23:19 Macrocytosis 1+ 06/16/17 23:19 Spherocytes Not Reportable 06/16/17 23:19 Pappenheimer Bodies Not Reportable 06/16/17 23:19 Sickle Cells Not Reportable 06/16/17 23:19 Target Cells Not Reportable 06/16/17 23:19 Tear Drop Cells Few 06/16/17 23:19 Ovalocytes Not Reportable 06/16/17 23:19 Helmet Cells Not Reportable 06/16/17 23:19 Peña-Gustavus Bodies Not Reportable 06/16/17 23:19 [place] Rings Not Reportable 06/16/17 23:19 Zack Cells Not Reportable 06/16/17 23:19 Bite Cells Not Reportable 06/16/17 23:19 Crenated Cell Not Reportable 06/16/17 23:19 Elliptocytes Not Reportable 06/16/17 23:19 Acanthocytes (Spur) Not Reportable 06/16/17 23:19 Rouleaux Not Reportable 06/16/17 23:19 Hemoglobin C Crystals Not Reportable 06/16/17 23:19 Schistocytes Not Reportable 06/16/17 23:19 Malaria parasites Not Reportable 06/16/17 23:19 ESR 57 mm/Hr (0-20) 06/16/17 23:19 Maxime Bodies Not Reportable 06/16/17 23:19 Hem Pathologist Commnt No 06/16/17 23:19 Sodium 138 mmol/L (137-145) 06/16/17 23:19 Potassium 4.7 mmol/L (3.6-5.0) 06/16/17 23:19 Chloride 92.8 mmol/L (98-107) L 06/16/17 23:19 Carbon Dioxide 24 mmol/L (22-30) 06/16/17 23:19 Anion Gap 26 mmol/L 06/16/17 23:19 BUN 28 mg/dL (7-17) H 06/16/17 23:19 Creatinine 5.1 mg/dL (0.7-1.2) H 06/16/17 23:19 Estimated GFR 10 ml/min 06/16/17 23:19 BUN/Creatinine Ratio 5 % 06/16/17 23:19 Glucose 141 mg/dL (65-100) H 06/16/17 23:19 POC Glucose 96 (70-105) 06/17/17 07:32 Calcium 9.3 mg/dL (8.4-10.2) 06/16/17 23:19 C-Reactive Protein 2.00 mg/dL (0.00-1.30) H 06/17/17 06:50 Assessment and Plan Assessment and plan: I saw and evaluated the patient. I agree with the findings and the plan of care as documented in the Nurse Practitioner's~note
[2017-06-17] MEDS ORDERED: DULCOLAX PR PRN (10:00)
[2017-06-17] MEDS ORDERED: TYLENOL PO PRN (10:00)
[2017-06-17] MEDS ORDERED: LOVENOX SUB-Q SCH (10:00)
[2017-06-17] MEDS ORDERED: NORVASC ONE (11:01)
[2017-06-17] MEDS ORDERED: CATAPRES ONE (11:01)
[2017-06-17] MEDS ORDERED: LOVENOX SUB-Q ONE (11:01)
[2017-06-17] MEDS ORDERED: ZESTRIL ONE (11:02)
[2017-06-17] MEDS: CATAPRES PO SCH ×2 (11:28→22:50)
[2017-06-17] MEDS: ZESTRIL PO SCH (11:29)
[2017-06-17] MEDS: LOVENOX SUB-Q SCH (11:29)
[2017-06-17] MEDS: NORVASC PO SCH (11:29)
--- NOTE | 2017-06-17 13:32 | Consultation ---
History of Present Illness - HPI Consult date: 06/17/17 Consult reason: low back pain History of present illness: 62 y/o female with c/o low back pain, states she's had recently treated for discitis at the T-spine... Past History Past Medical History: anemia, ESRD (hemodialysis), hypertension, other ( discitis) Past Surgical History: Other (A hemodialysis acess) Social history: denies: smoking, alcohol abuse Family history: CAD, hypertension Medications and Allergies Allergies Allergy/AdvReac Type Severity Reaction Status Date / Time latex AdvReac Hives Verified 06/16/17 15:42 tramadol AdvReac Hives Verified 06/16/17 15:42 Home Medications Medication Instructions Recorded Confirmed Last Taken Type cloNIDine [Catapres] 0.2 mg PO BID 10/23/16 06/17/17 10/22/16 History Cyclobenzaprine [Flexeril] 10 mg PO Q12H 06/17/17 06/17/17 Unknown History [place] 5-325 mg TAB 1 each PO Q12H 06/17/17 06/17/17 Unknown History Active Meds: Active Medications Acetaminophen (Tylenol) 650 mg PO Q4H PRN PRN Reason: Pain MILD(1-3)/Fever >100.5/[place] Amlodipine Besylate (Norvasc) 10 mg PO QDAY [facility] Last Admin: 06/17/17 11:29 Dose: 10 mg Bisacodyl (Dulcolax) 10 mg [place] QDAY PRN PRN Reason: Constipation unrelieved by MOM Clonidine HCl (Catapres) 0.2 mg PO BID [facility] Last Admin: 06/17/17 11:28 Dose: Not Given Enoxaparin Sodium (Lovenox) 30 mg SUB-Q QDAY [facility] Last Admin: 06/17/17 11:29 Dose: 30 mg Hydralazine HCl (Apresoline) 100 mg PO TID [facility] Lisinopril (Zestril) 10 mg PO DAILY [facility] Last Admin: 06/17/17 11:29 Dose: 10 mg Morphine Sulfate (Morphine) 2 mg IV Q4H PRN PRN Reason: Pain, Moderate (4-6) Assessment and Plan chronic low back pain hx of discitis lower T-spine bedrest, lumbar support, pain medication, consider physical therapy for heat, US , massage tx's
[2017-06-17] MEDS: APRESOLINE PO SCH ×3 (14:17→20:24)
[2017-06-17] MEDS ORDERED: ATIVAN IV ONE (16:00)
--- NOTE | 2017-06-17 18:46 | Magnetic Resonance Report ---
FINAL REPORT EXAM: MR LUMBAR SPINE WO CON HISTORY: back pain TECHNIQUE: Multi sequence multi planar MR images obtained of the lumbar spine PRIORS: CT abdomen pelvis from 10/23/2016 FINDINGS: Renal atrophy is noted with multiple cysts seen in the kidneys, bilaterally. Hyperintense T2 foci are seen in the spleen. There is heterogeneous signal in the paraspinal soft tissues at T11-12. Visualized portion of the spinal cord has normal signal intensity in T1 and T2 weighted sequences. There is abnormal hyperintense T2 and inversion recovery signal in the intervertebral disc space at T11-12. There is abnormal hyperintense inversion recovery signal and hypointense T1 signal in the vertebral bodies of T11 and T12 with evidence of endplate destruction. At L5-S1, there is facet arthrosis. There is no focal disc protrusion. There is mild foraminal narrowing. At L4-5, there is no focal disc protrusion, foraminal narrowing or canal stenosis. At L3-4, there is no focal disc protrusion, foraminal narrowing or canal stenosis. At L2-3, there is no focal disc protrusion, foraminal narrowing or canal stenosis. At L1-2, there is no focal disc protrusion, foraminal narrowing or canal stenosis. IMPRESSION: 1. 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
[2017-06-17] MEDS: MORPHINE IV PRN (23:58)
[2017-06-18] MEDS: MORPHINE IV PRN ×4 (05:11→20:19)
[2017-06-18 06:00] LABS: White Blood Count 4.2 K/mm3 (4.5-11.0)
[2017-06-18 06:01] LABS: Hematocrit 28.7 % (30.3-42.9); Hemoglobin 8.8 gm/dl (10.1-14.3); Mean Corpuscular HGB Conc 31 % (30-34); Mean Corpuscular Hemoglobin 24 pg (28-32); Mean Corpuscular Volume 78 fl (79-97); Platelet Count 105 K/mm3 (140-440)
[2017-06-18 06:02] LABS: Calcium 8.8 mg/dL (8.4-10.2); Chloride 96.8 mmol/L (98-107); Potassium 5.3 mmol/L (3.6-5.0)
[2017-06-18 06:50] LABS: Basophils % (Manual) 0 % (0.0-1.8); Blastocytes % (Manual) 0 %
[2017-06-18 06:51] LABS: Anisocytosis 1+; Diff Status Complete; Hypochromasia 1+; Macrocytosis 1+; Platelet Estimate Consistent w Auto; Schistocytes Rare
--- NOTE | 2017-06-18 07:25 | Progress Note ---
Assessment and Plan Assessment and plan: Patient is a 62 years old black -Swazi female with past medical history of end stage renal disease on TTS, hypertension, chronic anemia and discitis in her back. Patient has been having lower back pain for the past 2 weeks and gradually worsening over the past 2 days. Now she has had progressive worsening of her back pain to where she cannot walk, sitting up, changing position without having pain; she has never had anything like this before. She was recently treated for discitis at T11 and T12 in [place] and was discharged with IV antibiotic with hemodialysis and pain medication. Patient reported that she completed a course of antibiotics approximately one month ago. She denies fever, chills, chest pain, palpitation, nausea, vomiting, loss of bowel or bladder continence. Patient is in extreme distress due to pain also a poor historian therefor history is very limited. On admission, Patient was seen by Orthopedic surgeon with recommendation for bedrest, lumbar support, pain medication, consider physical therapy for heat, US, massage tx's Intractable back pain Controlled with morphine Supportive care Bed Rest, PT/OT, heat, US, Massage tx per ortho Discitis with osteomylitis T11-T12 associated with Phlegmonous change Erythrocyte sedimentation rate MRI reviewed and notes Discitis. Await report from [place], ?Duration of abx therapy. Will discuss again with Orthepedic surgeon Possible ID consult based on old medical records Continue pain control Supportive care T11 Compression fracture- Possible pathogenic Supportive care per Ortho. End-stage renal disease Nephrology consulted Pancytopenia/Leukopenia/Anemia Monitor for persistent infectious process Thrombocytopenia Most likely due to radiographic cirrhosis Closely monitor LFT Hypertension Resume antihypertensive medication Closely monitor blood pressure HyperKalemia Expect to correct with dialysis Questionable Diabetes mellitus We will obtain AC1 DVT prophylaxis SCD due to thrombocytopenia History Interval history: Patient seen and examined today very incoherent in the beginning. At first she reports that she has pain on her left flank area that started 3 days ago. When asked about her back pain for which she was treated with antibiotics she was unable initially to give me accurate information she knows that she got the antibiotics with dialysis she does not know where it was started ON to complete an possibility that he has completed. She then subsequently told me that she was discharged from [facility] in [place] and then stephany Mayo was discharged from there to when asked why she visited while in [place] about a week ago she stated that it was for the right flank pain than when asked considering that she just told to the right flank pain started 3 days ago she said although the pain changes sometimes on the left some ptosis on the right. She does not have much complaints about her back but she sees in pain whenever she moves she denies any urinary incontinence she denies any fecal incontinence. She has a back brace that was given to her prior. Hospitalist Physical - Physical exam Narrative exam: VITAL SIGNS: Reviewed. GENERAL: The patient appeared well nourished and normally developed. Vital signs as documented. HEAD: No signs of head trauma. EYES: Pupils are equal. Extraocular motions intact. EARS: Hearing grossly intact. MOUTH: Oropharynx is normal. NECK: No adenopathy, no JVD. CHEST: Chest with clear breath sounds bilaterally. No wheezes, rales, or rhonchi. CARDIAC: Regular rate and rhythm. S1 and S2, without murmurs, gallops, or rubs. VASCULAR: No Edema. Peripheral pulses normal and equal in all extremities. ABDOMEN: Soft, tender to palpation generalized the abdomen. No sign of distention. No rebound or guarding, and no masses palpated. Bowel Sounds normal. MUSCULOSKELETAL: Good range of motion of all major joints. Extremities without clubbing, cyanosis or edema. NEUROLOGIC EXAM: Alert and oriented x 3. No focal sensory or strength deficits. Speech normal. Follows commands. PSYCHIATRIC: Mood normal. SKIN: Right upper extremity fistula. Left INT.. - Constitutional Vitals: Temp Pulse Resp BP Pulse Ox 98.5 F 109 H 20 132/76 97 06/17/17 23:45 06/17/17 23:45 06/18/17 05:11 06/17/17 23:45 06/17/17 23:45 General appearance: Present: no acute distress Results - Labs CBC & Chem 7: 06/19/17 03:48 06/19/17 03:48 Labs: Laboratory Last Values WBC 4.2 K/mm3 (4.5-11.0) L 06/18/17 04:59 RBC 3.70 M/mm3 (3.65-5.03) 06/18/17 04:59 Hgb 8.8 gm/dl (10.1-14.3) L 06/18/17 04:59 Hct 28.7 % (30.3-42.9) L 06/18/17 04:59 MCV 78 fl (79-97) L 06/18/17 04:59 MCH 24 pg (28-32) L 06/18/17 04:59 MCHC 31 % (30-34) 06/18/17 04:59 RDW 20.0 % (13.2-15.2) H 06/18/17 04:59 Plt Count 105 K/mm3 (140-440) L 06/18/17 04:59 Lymph % (Auto) Leaf Blender 06/16/17 23:19 [place] % (Auto) Leaf Blender 06/16/17 23:19 Eos % (Auto) Leaf Blender 06/16/17 23:19 Baso % (Auto) Leaf Blender 06/16/17 23:19 Lymph # Leaf Blender 06/16/17 23:19 [place] # Leaf Blender 06/16/17 23:19 Eos # Leaf Blender 06/16/17 23:19 Baso # Leaf Blender 06/16/17 23:19 Add Manual Diff Complete 06/18/17 04:59 Total Counted 100 06/18/17 04:59 Seg Neutrophils % Leaf Blender 06/16/17 23:19 Seg Neuts % (Manual) 67.0 % (40.0-70.0) 06/18/17 04:59 Band Neutrophils % 0 % 06/18/17 04:59 Lymphocytes % (Manual) 13.0 % (13.4-35.0) L 06/18/17 04:59 Reactive Lymphs % (Man) 0 % 06/18/17 04:59 Monocytes % (Manual) 15.0 % (0.0-7.3) H 06/18/17 04:59 Eosinophils % (Manual) 5.0 % (0.0-4.3) H 06/18/17 04:59 Basophils % (Manual) 0 % (0.0-1.8) 06/18/17 04:59 Metamyelocytes % 0 % 06/18/17 04:59 Myelocytes % 0 % 06/18/17 04:59 Promyelocytes % 0 % 06/18/17 04:59 Blast Cells % 0 % 06/18/17 04:59 Nucleated RBC % Not Reportable 06/18/17 04:59 Seg Neutrophils # Leaf Blender 06/16/17 23:19 Seg Neutrophils # Man 2.8 K/mm3 (1.8-7.7) 06/18/17 04:59 Band Neutrophils # 0.0 K/mm3 06/18/17 04:59 Lymphocytes # (Manual) 0.5 K/mm3 (1.2-5.4) L 06/18/17 04:59 Abs React Lymphs (Man) 0.0 K/mm3 06/18/17 04:59 Monocytes # (Manual) 0.6 K/mm3 (0.0-0.8) 06/18/17 04:59 Eosinophils # (Manual) 0.2 K/mm3 (0.0-0.4) 06/18/17 04:59 Basophils # (Manual) 0.0 K/mm3 (0.0-0.1) 06/18/17 04:59 Metamyelocytes # 0.0 K/mm3 06/18/17 04:59 Myelocytes # 0.0 K/mm3 06/18/17 04:59 Promyelocytes # 0.0 K/mm3 06/18/17 04:59 Blast Cells # 0.0 K/mm3 06/18/17 04:59 WBC Morphology Not Reportable 06/18/17 04:59 Hypersegmented Neuts Not Reportable 06/18/17 04:59 Hyposegmented Neuts Not Reportable 06/18/17 04:59 Hypogranular Neuts Not Reportable 06/18/17 04:59 Smudge Cells Not Reportable 06/18/17 04:59 Toxic Granulation Not Reportable 06/18/17 04:59 Toxic Vacuolation Not Reportable 06/18/17 04:59 Dohle Bodies Not Reportable 06/18/17 04:59 Pelger-Huet Anomaly Not Reportable 06/18/17 04:59 Chaitanya Rods Not Reportable 06/18/17 04:59 Platelet Estimate Consistent w auto 06/18/17 04:59 Clumped Platelets Not Reportable 06/18/17 04:59 Plt Clumps, EDTA Not Reportable 06/18/17 04:59 Large Platelets Not Reportable 06/18/17 04:59 Giant Platelets Not Reportable 06/18/17 04:59 Platelet Satelliting Not Reportable 06/18/17 04:59 Plt Morphology Comment Not Reportable 06/18/17 04:59 RBC Morphology Not Reportable 06/18/17 04:59 Dimorphic RBCs Not Reportable 06/18/17 04:59 Polychromasia Not Reportable 06/18/17 04:59 Hypochromasia 1+ 06/18/17 04:59 Poikilocytosis Not Reportable 06/18/17 04:59 Anisocytosis 1+ 06/18/17 04:59 Microcytosis Not Reportable 06/18/17 04:59 Macrocytosis 1+ 06/18/17 04:59 Spherocytes Not Reportable 06/18/17 04:59 Pappenheimer Bodies Not Reportable 06/18/17 04:59 Sickle Cells Not Reportable 06/18/17 04:59 Target Cells Not Reportable 06/18/17 04:59 Tear Drop Cells Not Reportable 06/18/17 04:59 Ovalocytes Not Reportable 06/18/17 04:59 Helmet Cells Not Reportable 06/18/17 04:59 Peña-Hana Bodies Not Reportable 06/18/17 04:59 [place] Rings Not Reportable 06/18/17 04:59 Zack Cells Not Reportable 06/18/17 04:59 Bite Cells Not Reportable 06/18/17 04:59 Crenated Cell Not Reportable 06/18/17 04:59 Elliptocytes Not Reportable 06/18/17 04:59 Acanthocytes (Spur) Not Reportable 06/18/17 04:59 Rouleaux Not Reportable 06/18/17 04:59 Hemoglobin C Crystals Not Reportable 06/18/17 04:59 Schistocytes Rare 06/18/17 04:59 Malaria parasites Not Reportable 06/18/17 04:59 ESR 59 mm/Hr (0-20) 06/17/17 23:40 Maxime Bodies Not Reportable 06/18/17 04:59 Hem Pathologist Commnt No 06/18/17 04:59 Sodium 140 mmol/L (137-145) 06/18/17 04:59 Potassium 5.3 mmol/L (3.6-5.0) H 06/18/17 04:59 Chloride 96.8 mmol/L (98-107) L 06/18/17 04:59 Carbon Dioxide 22 mmol/L (22-30) 06/18/17 04:59 Anion Gap 27 mmol/L 06/18/17 04:59 BUN 45 mg/dL (7-17) H 06/18/17 04:59 Creatinine 7.4 mg/dL (0.7-1.2) H 06/18/17 04:59 Estimated GFR 7 ml/min 06/18/17 04:59 BUN/Creatinine Ratio 6 % 06/18/17 04:59 Glucose 69 mg/dL (65-100) 06/18/17 04:59 POC Glucose 96 (70-105) 06/17/17 07:32 Hemoglobin A1c 4.6 % (4-6) 06/17/17 23:40 Calcium 8.8 mg/dL (8.4-10.2) 06/18/17 04:59 C-Reactive Protein 2.00 mg/dL (0.00-1.30) H 06/17/17 06:50 - Imaging and Cardiology Imaging and Cardiology: MRI shows discitis and possible osteomyelitis T11 and T12.
[2017-06-18] MEDS: APRESOLINE PO SCH ×3 (09:18→20:19)
[2017-06-18] MEDS ORDERED: PROCRIT IV PRN (10:54)
[2017-06-18] MEDS ORDERED: NACL 0.9% 100 ML IV PRN (10:54)
--- NOTE | 2017-06-18 10:54 | Consultation ---
History of Present Illness - Reason for Consult Consult date: 06/18/17 end stage renal disease Requesting physician: CLAIRE DUFF - History of Present Illness atient is a 62 years old black -[place] Islander female with past medical history of end stage renal disease on TTS, hypertension, chronic anemia and discitis in her back. Patient has been having lower back pain for the past 2 weeks and gradually worsening over the past 2 days. Now she has had progressive worsening of her back pain to where she cannot walk, sitting up, changing position without having pain; she has never had anything like this before. She was recently treated for discitis at T11 and T12 in [place] and was discharged with IV antibiotic with hemodialysis and pain medication. Patient reported that she completed a course of antibiotics approximately one month ago. She denies fever, chills, chest pain, palpitation, nausea, vomiting, loss of bowel or bladder continence. Patient is in extreme distress due to pain also a poor historian therefor history is very limited. She undergoes hemodialysis in the clinic in [place] . Her normal days are Tuesdays, and Saturdays. She did have her dialysis last and is due for it again today. Past History Past Medical History: anemia, ESRD (hemodialysis), hypertension, other ( discitis) Past Surgical History: Other (A hemodialysis acess) Social history: denies: smoking, alcohol abuse Family history: CAD, hypertension Medications and Allergies Allergies Allergy/AdvReac Type Severity Reaction Status Date / Time latex AdvReac Hives Verified 06/16/17 15:42 tramadol AdvReac Hives Verified 06/16/17 15:42 Home Medications Medication Instructions Recorded Confirmed Last Taken Type cloNIDine [Catapres] 0.2 mg PO BID 10/23/16 06/17/17 10/22/16 History Cyclobenzaprine [Flexeril] 10 mg PO Q12H 06/17/17 06/17/17 Unknown History Bent 5-325 mg TAB 1 each PO Q12H 06/17/17 06/17/17 Unknown History Active Meds: Active Medications Acetaminophen (Tylenol) 650 mg PO Q4H PRN PRN Reason: Pain MILD(1-3)/Fever >100.5/PARKS Amlodipine Besylate (Norvasc) 10 mg PO QDAY KACIE Last Admin: 06/17/17 11:29 Dose: 10 mg Bisacodyl (Dulcolax) 10 mg MA QDAY PRN PRN Reason: Constipation unrelieved by MOM Clonidine HCl (Catapres) 0.2 mg PO BID [facility] Last Admin: 06/17/17 22:50 Dose: Not Given Enoxaparin Sodium (Lovenox) 30 mg SUB-Q QDAY [facility] Last Admin: 06/17/17 11:29 Dose: 30 mg Hydralazine HCl (Apresoline) 100 mg PO TID [facility] Last Admin: 06/18/17 09:18 Dose: 100 mg Lisinopril (Zestril) 10 mg PO DAILY [facility] Last Admin: 06/17/17 11:29 Dose: 10 mg Morphine Sulfate (Morphine) 2 mg IV Q4H PRN PRN Reason: Pain, Moderate (4-6) Last Admin: 06/18/17 09:18 Dose: 2 mg Review of Systems All systems: negative (negative except as noted above) Exam - Vital Signs Vital signs: Vital Signs Temp Pulse Resp BP Pulse Ox 98.7 F 102 H 18 138/84 100 06/16/17 21:55 06/16/17 21:55 06/16/17 21:55 06/16/17 21:55 06/16/17 21:55 - General Appearance General appearance: well-developed, well-nourished, appears stated age EENT: PERRL, mucous membranes moist Neck: Present: neck supple, trachea midline. Absent: JVD/HJR, Masses Respiratory: Clear to Ascultation Heart: regular, normal heart rate, S1S2, no murmurs Gastrointestinal: Present: normal, normoactive bowel sounds, other (mild tenderness in the left lower quadrant area) Integumentary: no rash, other (AV fistula in her left upper arm. Good bruit and thrill) Results - Lab Results 06/18/17 04:59 06/18/17 04:59 Most recent lab results Calcium 8.8 mg/dL (8.4-10.2) 06/18/17 04:59 Assessment and Plan Impression * Back pain * End-stage renal disease on maintenance hemodialysis * Hypertension * Anemia secondary to ESRD * Hyperkalemia Recommendations * Shall schedule patient for hemodialysis today and keep her on Tuesday, and Saturdays schedule for now * Continue Epogen with dialysis * No IV, BP or venipuncture access arm * Binders with diet * Avoid nephrotoxins * Adjust diet and meds for ESRD state * Shall also check a phosphorus level as well as a PTH level. She may have dialysis associated bone disease as well * Thank you very much for the consultation. Shall follow along with you
[2017-06-18] MEDS: CATAPRES PO SCH ×2 (11:48→22:00)
[2017-06-18] MEDS ORDERED: BENADRYL IV STA (12:08)
[2017-06-18] MEDS ORDERED: NACL 0.9 (PRIMING MACHINE ONLY DIALYSIS) MC ONE (12:12)
[2017-06-18] MEDS ORDERED: BENADRYL ONE (12:12)
[2017-06-18] MEDS: LOVENOX SUB-Q SCH (16:17)
[2017-06-18] MEDS: NORVASC PO SCH (16:35)
[2017-06-18] MEDS: ZESTRIL PO SCH (16:36)
[2017-06-19] MEDS: MORPHINE IV PRN ×3 (01:10→09:48)
[2017-06-19 05:03] LABS: Hematocrit 32.7 % (30.3-42.9); Hemoglobin 9.9 gm/dl (10.1-14.3); Mean Corpuscular HGB Conc 30 % (30-34); Mean Corpuscular Hemoglobin 24 pg (28-32); Mean Corpuscular Volume 78 fl (79-97); Platelet Count 111 K/mm3 (140-440); Red Cell Distribution Width 20.5 % (13.2-15.2); White Blood Count 3.9 K/mm3 (4.5-11.0)
[2017-06-19 05:09] LABS: Calcium 9.3 mg/dL (8.4-10.2); Chloride 96.2 mmol/L (98-107); Potassium 4.7 mmol/L (3.6-5.0)
[2017-06-19 07:36] VITALS: BP 124/63
--- NOTE | 2017-06-19 07:55 | Discharge Summary ---
Providers - Providers Date of Admission: 06/17/17 08:56 Attending physician: MAYELA BRADY MD 06/17/17 11:23 PICC Line Insertion [Consult to PICC Line RN] [CONS] Stat Reason For Exam: dr magda Type Line:: PICC 06/17/17 12:42 Consult to Physician [CONS] Routine Consulting Provider: EUGENIO SANDERS Reason For Exam: ESRD Place consult to:: Notified:: OFFICE Phone number called:: [phone] Was contact made?: Yes If yes, spoke with:: YANCI Cunha called:: 13:04 Comment:: PACHECO NOTIFIED 06/17/17 12:43 Consult to Physician [CONS] Routine Consulting Provider: ROSEANNE GUILLORY Reason For Exam: T11 compression fracture Place consult to:: DR. GUILLORY Notified:: DR. GUILLORY Phone number called:: IN HOUSE Was contact made?: Yes If yes, spoke with:: DR. GUILLORY Time called:: 13:08 Comment:: PACHECO NOTIFIED 06/19/17 07:40 Occupational Therapy Evaluate and Treat [CONS] Routine Comment: Reason For Exam: Debility Physical Therapy Evaluation and Treat [CONS] Routine Comment: Reason For Exam: Debility Primary care physician: JOURNEYMAN PIPE FITTER Hospitalization Reason for admission: left flank pain Condition: Stable Hospital course: Patient is a 62 years old black -Colombian female with past medical history of end stage renal disease on TTS, hypertension, chronic anemia and discitis in her back. Patient has been having lower back pain for the past 2 weeks and gradually worsening over the past 2 days. Now she has had progressive worsening of her back pain to where she cannot walk, sitting up, changing position without having pain; she has never had anything like this before. She was recently treated for discitis at T11 and T12 in [place] and was discharged with IV antibiotic with hemodialysis and pain medication. Patient reported that she completed a course of antibiotics approximately one month ago. She denies fever, chills, chest pain, palpitation, nausea, vomiting, loss of bowel or bladder continence. Patient is in extreme distress due to pain also a poor historian therefor history is very limited. On admission, Patient was seen by Orthopedic surgeon with recommendation for bedrest, lumbar support, pain medication, consider physical therapy for heat, US, massage tx's. Images study here showed discitis of T11 to T12 with phlegmonous change I did recommend to the patient for interventional radiology to evaluate possible duodenal aspiration but the patient refused. She did have dialysis. We did review her records from [facility] where it is noted that the patient was treated a while start [facility] from [phone] with MRSA bacteremia with extensive antibiotics and subsequently was noted on 731 with intractable back pain with discitis and osteo-associate with phlegmon which was aspirated by IR and culture was sterile patient was at that time also treated with antibiotics for 4 more weeks which she finished on 8:30 at her outpatient hemodialysis clinic. The patient reports compliance. She again was admitted at [facility] with low back pain that radiates around her abdomen and again no associated neuro deficits as noted here images studies with CT did not show any acute finding but then MRI showed T11 to T12 at that time with no evidence of phlegmon or abscess but she had no fever leukocytosis and was treated with conservative management as it was felt that there is no further need for antibiotics. Neurosurgery did see the patient and recommended a TLSO brace to assist with the pain the patient states that this works just a little bit and then reoccurs. The patient at this time states that she has a neurosurgery appointment I would like to follow with Dr. Santiago the neurosurgeon and would rather be discharged from here and transferred so that she could have an evaluation done by him. She does not have any fever but white count she does not have any significant low back pain but has more of a left flank pain tender to palpation which she states radiates to the left lower back no rashes were noted. She understands that if she does develop any fever that she is to return to the hospital she also understands. I Stressed the importance of transferring her rather than discharge prior to which she adamantly refusesthat she does not have any fever she only has the pain. 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 Recommend follow-up with neurosurgery patient refused IR consult for aspiration. Was to follow-up with neurosurgery at [place]. T11 Compression fracture- Possible pathogenic Supportive care per Ortho. Continue TLSO brace. We'll discharge with physical therapy. End-stage renal disease Nephrology consulted Pancytopenia/Leukopenia/Anemia Monitor for persistent infectious process Thrombocytopenia Stable Hypertension Resume antihypertensive medication Closely monitor blood pressure HyperKalemia Improved with dialysis Disposition: DC/TX-06 HOME UNDER HOME HL Time spent for discharge: 35 MINS Core Measure Documentation - Palliative Care Palliative Care/ Comfort Measures: Not Applicable - Core Measures Any of the following diagnoses?: none - VTE Discharge Requirements Deep Vein Thrombosis/Pulmonary Embolism Present on Admission: No Exam - Physical Exam Narrative exam: VITAL SIGNS: Reviewed. GENERAL: The patient appeared well nourished and normally developed. Vital signs as documented. HEAD: No signs of head trauma. EYES: Pupils are equal. Extraocular motions intact. EARS: Hearing grossly intact. MOUTH: Oropharynx is normal. NECK: No adenopathy, no JVD. CHEST: Chest with clear breath sounds bilaterally. No wheezes, rales, or rhonchi. CARDIAC: Regular rate and rhythm. S1 and S2, without murmurs, gallops, or rubs. VASCULAR: No Edema. Peripheral pulses normal and equal in all extremities. ABDOMEN: Soft, tender on the left flank. No sign of distention. No rebound or guarding, and no masses palpated. Bowel Sounds normal. MUSCULOSKELETAL: Good range of motion of all major joints. Extremities without clubbing, cyanosis or edema. NEUROLOGIC EXAM: Alert and oriented x 3. No focal sensory or strength deficits. Speech normal. Follows commands. PSYCHIATRIC: Mood normal. SKIN: Right upper extremity fistula. Left INT.. - Constitutional Vitals: Temp Pulse Resp BP Pulse Ox 98.1 F 100 H 18 124/63 97 06/19/17 07:33 06/19/17 07:33 06/19/17 07:33 06/19/17 07:33 06/19/17 07:33 Plan Activity: advance as tolerated, fall precautions Diet: renal Special Instructions: record daily weights, record daily BP diary, smoking cessation, physical therapy, occupational therapy Additional Instructions: FOLLOW WITH NEUROSURGERY AT [facility]-Dr. Santiago. CONTINUE WITH BACK BRACE. RETURN TO HOSPITAL IF FEVER DEVELOPS Follow up with: PRIMARY CAREMD [Primary Care Provider] - 3-5 Days MICHAEL ROBLES MD [Staff Physician] - 7 Days Prescriptions: amLODIPine [Norvasc] 10 mg PO QDAY #30 tablet Cyclobenzaprine [Flexeril 10 MG TAB] 10 mg PO Q12H #14 tablet hydrALAZINE [Apresoline TAB] 100 mg PO TID #30 tab Lisinopril [Zestril TAB] 10 mg PO DAILY #30 tablet [place] 5-325 mg TAB 1 each PO Q12H #14
[2017-06-19] MEDS: CATAPRES PO SCH (09:46)
[2017-06-19] MEDS: APRESOLINE PO SCH (09:47)
[2017-06-19] MEDS: LOVENOX SUB-Q SCH (10:00)
--- NOTE | 2017-06-19 10:46 | Progress Note ---
Assessment and Plan Impression * Back pain * End-stage renal disease on maintenance hemodialysis * Hypertension * Anemia secondary to ESRD * Hyperkalemia Recommendations * Patient had uneventful hemodialysis yesterday * Shall keep her on Tuesday, and Saturdays schedule for now * Continue Epogen with dialysis * No IV, BP or venipuncture access arm * Binders with diet * Avoid nephrotoxins * Adjust diet and meds for ESRD state * Discharge plans noted. Patient advised to continue her outpatient scheduled dialysis on Tuesdays, and Saturdays Subjective Date of service: 06/19/17 Interval history: Patient is comfortable today. Getting ready for discharge. Denies any shortness of breath. Had uneventful dialysis yesterday Objective - Vital Signs Vital signs: Vital Signs - 12hr 06/18/17 06/19/17 06/19/17 23:00 01:10 01:40 Temperature 98.5 F Pulse Rate 104 H Respiratory 18 20 16 Rate Blood Pressure 127/70 O2 Sat by Pulse 98 Oximetry 06/19/17 06/19/17 06/19/17 07:13 07:33 07:43 Temperature 98.1 F Pulse Rate 100 H Respiratory 18 18 16 Rate Blood Pressure 124/63 O2 Sat by Pulse 97 Oximetry - General Appearance General appearance: well-developed, well-nourished, appears stated age EENT: PERRL, mucous membranes moist Neck: no JVD, no thyromegaly, no carotid bruit, supple Respiratory: Present: Clear to Ascultation Cardiology: regular, normal heart rate Gastrointestinal: normal, normoactive bowel sounds Integumentary: no rash, other (AV graft in her upper arm. Good bruit and thrill ) - Lab 06/19/17 03:48 06/19/17 03:48 Most recent lab results Calcium 9.3 mg/dL (8.4-10.2) 06/19/17 03:48
== END 2017-06-19 11:15 | disposition home or self-care (01) | DRG 542 ==
LOC: ED 21:35 → 3A 06-17 08:56
PROVIDERS: ADMIT Internal Medicine; ATTEND Internal Medicine
PROC: 5A1D70Z Performance of Urinary Filtration, Intermittent, Less than 6 Hours Per Day (ICD-10-PCS; principal; 2017-06-18)
DX: M84.48XA Pathological fracture, other site, initial encounter for fracture (principal); N18.6 End stage renal disease; M46.24 Osteomyelitis of vertebra, thoracic region; D61.818 Other pancytopenia; I13.2 Hypertensive heart and chronic kidney disease with heart failure and with stage 5 chronic kidney disease, or end stage renal disease; M46.44 Discitis, unspecified, thoracic region; D53.9 Nutritional anemia, unspecified; E87.5 Hyperkalemia; E11.22 Type 2 diabetes mellitus with diabetic chronic kidney disease; F17.200 Nicotine dependence, unspecified, uncomplicated; G89.29 Other chronic pain; D63.1 Anemia in chronic kidney disease; I50.9 Heart failure, unspecified; Z90.710 Acquired absence of both cervix and uterus; Z79.899 Other long term (current) drug therapy; Z82.49 Family history of ischemic heart disease and other diseases of the circulatory system; Z91.040 Latex allergy status
CPT/HCPCS: 36415; 72148; 80048; 82962; 83036; 85007; 85025; 85027; 85652; 86140; 96372; 99406; J0885; J1200; J1650; J2060; J2270; J7030

== ENCOUNTER 2017-06-20 11:34 | Emergency (ER) | payer MEDICARE ==
[2017-06-20 11:56] VITALS: BP 139/72
[2017-06-20] MEDS ORDERED: ZOFRAN IV ONE (14:03)
[2017-06-20] MEDS ORDERED: MORPHINE IV ONE (14:03)
[2017-06-20] MEDS ORDERED: BENADRYL IV ONE (16:31)
[2017-06-20] MEDS ORDERED: PEPCID IV ONE (16:32)
[2017-06-20 16:35] LABS: Hematocrit 31.7 % (30.3-42.9); Hemoglobin 9.8 gm/dl (10.1-14.3); Mean Corpuscular HGB Conc 31 % (30-34); Mean Corpuscular Volume 76 fl (79-97); Platelet Count 115 K/mm3 (140-440); Red Blood Count 4.15 M/mm3 (3.65-5.03); White Blood Count 3.3 K/mm3 (4.5-11.0)
[2017-06-20 16:36] LABS: Mean Corpuscular Hemoglobin 24 pg (28-32); Red Cell Distribution Width 20.6 % (13.2-15.2)
[2017-06-20 16:54] LABS: Albumin 3.8 g/dL (3.9-5); Albumin/Globulin Ratio 0.7 %; Bilirubin,Total 0.5 mg/dL (0.1-1.2); Calcium 9.2 mg/dL (8.4-10.2); Chloride 87.1 mmol/L (98-107); Potassium 5.2 mmol/L (3.6-5.0); Total Protein 9.1 g/dL (6.3-8.2)
[2017-06-20 17:22] LABS: Blastocytes % (Manual) 0 %
[2017-06-20 17:23] LABS: Basophils % (Manual) 0 % (0.0-1.8)
[2017-06-20 17:24] LABS: Anisocytosis 1+; Hypochromasia 1+; Platelet Estimate Appears Decreased
[2017-06-20 17:25] LABS: Diff Status Complete
--- NOTE | 2017-06-20 17:57 | Emergency Department Report ---
ED General Adult HPI - General Chief complaint: Back Pain/Injury Stated complaint: BACK PAIN/LEFT SIDE Time Seen by Provider: 06/20/17 14:03 Source: patient Mode of arrival: Ambulatory Limitations: No Limitations - History of Present Illness Initial comments: 62-year-old female with history of hypertension and currently on dialysis presents to the ED complaining about low back pain. Patient states she was seen here a couple days ago and admitted for discitis states that she was given antibiotics and medication with follow-up to orthopedist. Patient states she is continuing to have pain and lower back despite wearing a back brace and taking medication. Denies fever, chest pain, shortness of breath, abdominal pain. -: Gradual Severity scale (0 -10): 4 - Related Data Home Medications Medication Instructions Recorded Confirmed Last Taken cloNIDine [Catapres] 0.2 mg PO BID 10/23/16 06/17/17 10/22/16 Previous Rx's Medication Instructions Recorded Last Taken Type Cyclobenzaprine [Flexeril 10 MG 10 mg PO Q12H #14 tablet 06/19/17 Unknown Rx TAB] Lisinopril [Zestril TAB] 10 mg PO DAILY #30 tablet 06/19/17 Unknown Rx amLODIPine [Norvasc] 10 mg PO QDAY #30 tablet 06/19/17 Unknown Rx hydrALAZINE [Apresoline TAB] 100 mg PO TID #30 tab 06/19/17 Unknown Rx [place] 5-325 mg TAB 1 each PO Q12H #20 06/20/17 Unknown Rx Allergies Allergy/AdvReac Type Severity Reaction Status Date / Time latex AdvReac Hives Verified 06/16/17 15:42 tramadol AdvReac Hives Verified 06/16/17 15:42 ED Review of Systems ROS: Stated complaint: BACK PAIN/LEFT SIDE Other details as noted in HPI Constitutional: denies: chills, fever Eyes: denies: eye pain, eye discharge, vision change ENT: denies: ear pain, throat pain Respiratory: denies: cough, shortness of breath, wheezing Cardiovascular: denies: chest pain, palpitations Endocrine: no symptoms reported Gastrointestinal: denies: abdominal pain, nausea, diarrhea Genitourinary: denies: urgency, dysuria, discharge Musculoskeletal: back pain. denies: joint swelling, arthralgia Skin: denies: rash, lesions Neurological: denies: headache, weakness, paresthesias Psychiatric: denies: anxiety, depression Hematological/Lymphatic: denies: easy bleeding, easy bruising ED Past Medical Hx - Past Medical History Hx Hypertension: Yes Hx Congestive Heart Failure: Yes Hx Diabetes: Yes Hx Renal Disease: Yes (DIALYSIS TUE /Tue) Hx Asthma: No Hx COPD: No Hx HIV: No Additional medical history: dialysis ,,tue - Surgical History Additional Surgical History: fistula L arm. partial hysterectomy. POWER PORT RIGHT CHEST - Social History Smoking Status: Current Some Day Smoker Substance Use Type: None - Medications Home Medications: Home Medications Medication Instructions Recorded Confirmed Last Taken Type cloNIDine [Catapres] 0.2 mg PO BID 10/23/16 06/17/17 10/22/16 History Cyclobenzaprine [Flexeril 10 MG 10 mg PO Q12H #14 tablet 06/19/17 Unknown Rx TAB] Lisinopril [Zestril TAB] 10 mg PO DAILY #30 tablet 06/19/17 Unknown Rx amLODIPine [Norvasc] 10 mg PO QDAY #30 tablet 06/19/17 Unknown Rx hydrALAZINE [Apresoline TAB] 100 mg PO TID #30 tab 06/19/17 Unknown Rx [place] 5-325 mg TAB 1 each PO Q12H #20 06/20/17 Unknown Rx ED Physical Exam - General Limitations: No Limitations General appearance: alert, in no apparent distress - Head Head exam: Present: atraumatic, normocephalic - Eye Eye exam: Present: normal appearance - ENT ENT exam: Present: mucous membranes moist - Neck Neck exam: Present: normal inspection - Respiratory Respiratory exam: Present: normal lung sounds bilaterally. Absent: respiratory distress - Cardiovascular Cardiovascular Exam: Present: regular rate, normal rhythm. Absent: systolic murmur, diastolic murmur, rubs, gallop - GI/Abdominal GI/Abdominal exam: Present: soft, normal bowel sounds - Extremities Exam Extremities exam: Present: normal inspection - Back Exam Back exam: Present: normal inspection, full ROM, tenderness, muscle spasm, paraspinal tenderness, vertebral tenderness. Absent: CVA tenderness (R), CVA tenderness (L) - Neurological Exam Neurological exam: Present: alert, oriented X3, normal gait. Absent: CN II-XII intact, motor sensory deficit - Psychiatric Psychiatric exam: Present: normal affect, normal mood - Skin Skin exam: Present: warm, dry, intact, normal color. Absent: rash ED Course Vital Signs 06/20/17 11:53 Temperature 98.1 F Pulse Rate 100 H Respiratory 20 Rate Blood Pressure 139/72 O2 Sat by Pulse 100 Oximetry ED Medical Decision Making - Lab Data Result diagrams: 06/20/17 14:03 06/20/17 14:03 Vital Signs 06/20/17 11:53 Temperature 98.1 F Pulse Rate 100 H Respiratory 20 Rate Blood Pressure 139/72 O2 Sat by Pulse 100 Oximetry Laboratory Results - last 24 hr 06/20/17 06/20/17 14:03 14:03 WBC 3.3 L RBC 4.15 Hgb 9.8 L Hct 31.7 MCV 76 L MCH 24 L MCHC 31 RDW 20.6 H Plt Count 115 L Gibson % (Auto) Quartz Cutter Add Manual Diff Complete Total Counted 100 Seg Neuts % (Manual) 72.0 H Band Neutrophils % 0 Lymphocytes % (Manual) 14.0 Reactive Lymphs % (Man) 0 Monocytes % (Manual) 10.0 H Eosinophils % (Manual) 4.0 Basophils % (Manual) 0 Metamyelocytes % 0 Myelocytes % 0 Promyelocytes % 0 Blast Cells % 0 Nucleated RBC % Not Reportable Seg Neutrophils # Man 2.4 Band Neutrophils # 0.0 Lymphocytes # (Manual) 0.5 L Abs React Lymphs (Man) 0.0 Monocytes # (Manual) 0.3 Eosinophils # (Manual) 0.1 Basophils # (Manual) 0.0 Metamyelocytes # 0.0 Myelocytes # 0.0 Promyelocytes # 0.0 Blast Cells # 0.0 WBC Morphology Not Reportable Hypersegmented Neuts Not Reportable Hyposegmented Neuts Not Reportable Hypogranular Neuts Not Reportable Smudge Cells Not Reportable Toxic Granulation Not Reportable Toxic Vacuolation Not Reportable Dohle Bodies Not Reportable Pelger-Huet Anomaly Not Reportable Chaitanya Rods Not Reportable Platelet Estimate Appears decreased Clumped Platelets Not Reportable Plt Clumps, EDTA Not Reportable Large Platelets Not Reportable Giant Platelets Not Reportable Platelet Satelliting Not Reportable Plt Morphology Comment Not Reportable RBC Morphology Not Reportable Dimorphic RBCs Not Reportable Polychromasia Not Reportable Hypochromasia 1+ Poikilocytosis Not Reportable Anisocytosis 1+ Microcytosis Not Reportable Macrocytosis Not Reportable Spherocytes Not Reportable Pappenheimer Bodies Not Reportable Sickle Cells Not Reportable Target Cells Not Reportable Tear Drop Cells Not Reportable Ovalocytes Not Reportable Helmet Cells Not Reportable [place] Bodies Not Reportable [place] Rings Not Reportable Zack Cells Not Reportable Bite Cells Not Reportable Crenated Cell Not Reportable Elliptocytes Not Reportable Acanthocytes (Spur) Not Reportable Rouleaux Not Reportable Hemoglobin C Crystals Not Reportable Schistocytes Not Reportable Malaria parasites Not Reportable Maxime Bodies Not Reportable Hem Pathologist Commnt No Sodium 132 L D Potassium 5.2 H Chloride 87.1 L Carbon Dioxide 25 Anion Gap 25 BUN 45 H Creatinine 7.5 H D Estimated GFR 7 BUN/Creatinine Ratio 6 Glucose 75 Calcium 9.2 Total Bilirubin 0.50 AST 26 ALT 11 Alkaline Phosphatase 113 Total Protein 9.1 H Albumin 3.8 L Albumin/Globulin Ratio 0.7 - Medical Decision Making Patient is resting comfortably at this time. Patient is hemodynamically stable and nontoxic appearing. Patient has no fever or tachycardia. We'll provide her with pain medication and she will continue to follow up with specialist. No acute distress at this time. States relief with morphine in the ED. states WBC is lower today than it was couple days ago. Critical care attestation.: If time is entered above; I have spent that time in minutes in the direct care of this critically ill patient, excluding procedure time. ED Disposition Clinical Impression: Back pain Disposition: DC-01 TO HOME OR SELFCARE Is pt being admited?: No Does the pt Need Aspirin: No Condition: Good Instructions: Low Back Strain (ED) Prescriptions: [place] 5-325 mg TAB 1 each PO Q12H #20 Referrals: PRIMARY CAREMD [Primary Care Provider] - 3-5 Days ROSEANNE GUILLORY MD [Staff Physician] - 3-5 Days Time of Disposition: 17:57
== END 2017-06-20 18:53 | disposition home or self-care (01) ==
LOC: ED 11:34
DX: M54.5 Low back pain (principal); I10 Essential (primary) hypertension; I50.9 Heart failure, unspecified; E11.9 Type 2 diabetes mellitus without complications; F17.200 Nicotine dependence, unspecified, uncomplicated; Z88.6 Allergy status to analgesic agent; Z91.040 Latex allergy status
CPT/HCPCS: 36415; 80053; 85007; 85025; 96374; 96375; 99283; J1200; J2270; J2405